=== PATIENT | female | born 1940 | race Caucasian/White ===

== ENCOUNTER 2016-08-03 20:18 | Emergency (ER) | payer MEDICARE, BC ==
--- NOTE | ~2016-08-03 | ER ---
PATIENT'S NAME: JEANETTE HERR [facility] AGE: 76 Y [address] ROOM: [place] [id number] LOCATION: [facility] ADMIT DATE: 08/03/2016 ER/Outpatient Report DISCHARGE DATE: 08/03/2016 FAMILY PHYSICIAN: Ramses Ro MD ATTENDING PHYSICIAN: Paula Marquez HISTORY OF PRESENT ILLNESS: A 76-year-old female, who presents today with cough for the last 5 days. She says that she has some chest and rib pain with the cough. She has a hoarse voice. The cough is dry and nonproductive. Denies any fever or chills, but she says she felt some mild rhinorrhea and feels stuffy. Denies sore throat. The patient is very concerned because she has to drive her to [place] soon to see if could be a cardiac patient and she does not want. She says she needs to be in "[employer] to bring him there." She reports that she has been coughing at night and she is not sleeping at her 's last evening. It looks like something for her cough has been tried with Robitussin without any results at this time. Denies any nausea, vomiting, chest pain, otherwise, back pain, headache, sore throat, ear pain. No sick contacts. No travel out of the country. No other complaints. PAST MEDICAL HISTORY: Hypertension, hypercholesterolemia, depression, history of pneumonia, history of PE as well, although thought to be secondary to estrogen injections and the patient is currently not on any anticoagulation. PAST SURGICAL HISTORY: Shoulder surgery and a hysterectomy. SOCIAL HISTORY: She does not smoke, drink, or use any drugs. MEDICATIONS: Please see med list. ALLERGIES: NONE. REVIEW OF SYSTEMS: Reviewed by me and negative with the exception of those discussed in the HPI. PHYSICAL EXAMINATION: VITAL SIGNS: The patient is 5 feet 3 inches; she weighs 56.3 kilos; her blood pressure is 155/89; heart rate is 96 beats per minute; respiratory rate is 20; her SpO2 is 96% on room air; temperature is 99.5, tympanic. GENERAL: The patient is well appearing. She looks much younger than stated PATIENT'S NAME: JEANETTE HERR [facility] AGE: 76 Y [address] ROOM: [place], [place] [address] LOCATION: [facility] ADMIT DATE: 08/03/2016 ER/Outpatient Report DISCHARGE DATE: 08/03/2016 FAMILY PHYSICIAN: Ramses Ro MD ATTENDING PHYSICIAN: Paula Marquez. She is nontoxic. She is speaking to me in full sentences. She does not appear short of breath. Her throat is clear. She has no cervical lymphadenopathy. HEART: Regular rate and rhythm at this time at 97 beats per minute. LUNGS: Lung sounds are clear. She does not have any wheezing, rales, or rhonchi. She does not have any increased work of breathing. No chest wall tenderness. ABDOMEN: Soft, nontender, nondistended. No guarding or rebound. No pedal edema. ER COURSE: A chest x-ray was done. I do not see any acute cardiopulmonary process on it. So, we will give her some Tessalon Perles and Robitussin with some codeine in it. The patient understands. She will follow up with her primary care doctor. IMPRESSION: Cough. MD NGA LLOYD/bailey /[id number] d: 08/04/16 0658 t: 08/05/16 1820, OUTPATIENT REPORT
[~2016-08-03 20:18] MED LIST: ALDACTONE25 MG PO; ASPIRIN EC81 MG PO; LIPITOR10 MG PO; VENLAFAXINE HCL75 MG PO; VITAMIN B COMP1 EACH PO; VITAMIN D1000 UNIT PO
== END 2016-08-03 21:07 | disposition disaster alternative care site (69) ==
LOC: GMED 20:18
DX: R05 Cough (principal); I10 Essential (primary) hypertension; E78.00 Pure hypercholesterolemia, unspecified; F32.9 Major depressive disorder, single episode, unspecified; Z87.01 Personal history of pneumonia (recurrent); Z86.711 Personal history of pulmonary embolism; Z79.890 Hormone replacement therapy; Z79.82 Long term (current) use of aspirin; Z79.899 Other long term (current) drug therapy

== ENCOUNTER → 2016-08-29 | Outpatient (CLI) | payer MEDICARE, BC ==
[2016-08-29 12:31] LABS: HEMATOCRIT 39.6 % (33.0-46.0); HEMOGLOBIN 12.8 g/dL (10.0-15.0); MCH 29.6 pg (27.0-34.0); MCHC 32.3 gm/dL (32.0-36.5); MCV 91.5 fl (83.0-98.0); MPV 9.9 fl (9.4-12.4); RBC 4.33 M/uL (3.50-5.50); RDW-CV 13.1 % (11.9-14.6); WBC 7.2 K/uL (4.0-11.0)
== END ==
LOC: LGSMG 11:49
PROVIDERS: Internal Medicine Nephrology
DX: I10 Essential (primary) hypertension (principal); Z79.899 Other long term (current) drug therapy; E78.5 Hyperlipidemia, unspecified; E87.2 Acidosis; R31.29 Other microscopic hematuria; I87.2 Venous insufficiency (chronic) (peripheral)

== ENCOUNTER → 2016-09-12 | Outpatient (CLI) | payer MEDICARE, BC | END | disposition disaster alternative care site (69) | LOC: LGSMG 09:55 | DX: Z86.711 Personal history of pulmonary embolism (principal); R06.89 Other abnormalities of breathing ==

== ENCOUNTER → 2016-10-05 | Outpatient (CLI) | payer MEDICARE, BC ==
--- NOTE | ~2016-10-05 | PUL ---
PATIENT'S NAME: JEANETTE HERR [facility] AGE: 76 Y [address] ROOM: [place] [address] LOCATION: [facility] ADMIT DATE: 10/05/2016 Pulmonary DISCHARGE DATE: FAMILY PHYSICIAN: Ramses Ro MD ATTENDING PHYSICIAN: Ramses Ro NAME OF PROCEDURE: Home sleep test DATE OF PROCEDURE: 10/05/2016 TECH: Deep [facility] SUMMARY: Patient underwent home sleep testing using a type III device and was studied for 6 hours 27 minutes. There were 92 apneas and 94 hypopneas for an apnea/hypopnea index severely elevated at 29 events per hour. Oxygen saturations ranged 82-93%. Heart rate ranged from 59-103 beats per minute. IMPRESSION: Severe obstructive sleep apnea. PLAN: The patient will receive results from the ordering provider. AV CAZARES MD [facility]/ /[id number] dtt: 10/26/16 1301 , [address] dtd: 10/11/16 1155
== END | disposition disaster alternative care site (69) ==
LOC: GSLP 12:56
DX: G47.19 Other hypersomnia (principal); G47.33 Obstructive sleep apnea (adult) (pediatric)
CPT/HCPCS: G0399